=== PATIENT | female | born 1980 | race Hispanic/Latino ===

== ENCOUNTER 2019-10-13 10:59 | Emergency (ER) | payer OTHER ==
[~2019-10-13] VITALS: Ht 157.5 cm; Wt 78.0 kg
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
== END 2019-10-13 14:50 | disposition home or self-care (01) ==
LOC: ED 10:59
DX: M79.602 Pain in left arm (principal); M79.601 Pain in right arm; E87.6 Hypokalemia; E83.42 Hypomagnesemia; F15.90 Other stimulant use, unspecified, uncomplicated
CPT/HCPCS: 71045; 72125; 80053; 81001; 82550; 83735; 84439; 84443; 84703; 85025; 85651; 86140; 96374; 96375; 99284-25; J1885; J2405; J3475